=== PATIENT | female | born 1960 ===

== ENCOUNTER 2017-06-04 07:48 | Day surgery (SDC) | payer OTHER ==
[2017-05-29 11:06] VITALS: BMI 26.6
[2017-06-04] MEDS ORDERED: Lactated Ringer's 1,000 ML IV ONE (09:23)
[2017-06-04] MEDS ORDERED: Lidocaine 1% Inj (20ml) ONE (10:23)
[2017-06-04] MEDS ORDERED: Lidocaine 1% w Epi 1:100,000 Inj ONE (10:23)
--- NOTE | 2017-06-04 10:30 | CP.SDSHP ---
Same Day Surgery H & P - History Proposed Procedure: excision of Left posterior neck lipoma Pre-Op Diagnosis: Left posterior neck lipoma - Previous Medical/Surgical History Previous Surgical History: Breast augmentation, dental implants - Allergies Allergies: Allergies peach Adverse Reaction (Verified 05/29/17 10:01) SWELLING seafood Adverse Reaction (Uncoded 05/29/17 10:00) SWELLING - Physical Exam General Appearance: NAD Vital Signs: Vital Signs 06/04/17 08:42 Temperature 98.4 F Pulse Rate 87 Respiratory 18 Rate Blood Pressure 160/90 H O2 Sat by Pulse 99 Oximetry Mental Status: Alert & Oriented x3 Neuro: WNL Heart: WNL Lungs: WNL GI: WNL - {Optional Preform as Required} Breast: Other (Implants) Abdomen: WNL Integument: Other ENT: WNL - Impression Impression: Left posterior lipoma Pt. Evaluated Today:Candidate for Anesthesia & Procedure: Yes - Date & Time Date: 06/04/17 Time: 10:30 Short Stay Discharge - Short Stay Discharge Admitting Diagnosis/Reason for Visit: D17.0 Disposition: HOME/ ROUTINE Referrals: Ignacio Fink MD [Primary Care Provider] - Follow-up: follow up with Dr. Kapoor in 1-2 weeks Pain med as needed
[2017-06-04] MEDS ORDERED: Propofol 10 mg/ml Inj (20 ML) ONE (10:44)
[2017-06-04] MEDS ORDERED: Lidocaine Hydrochloride 5 ML INJ ONE (10:45)
[2017-06-04] MEDS ORDERED: Midazolam 2 MG/2 ML VIAL ONE (10:45)
[2017-06-04] MEDS ORDERED: Lidocaine/Epi 1% 1:100000 20 ML IJ ONE (11:23)
[2017-06-04] MEDS ORDERED: Bupivacaine-Epi 0.5%-1:200,000 PF Inj IJ ONE (11:23)
[2017-06-04] MEDS ORDERED: HYDROmorphone 0.5 mg/0.5 ml ISec IVP PRN (12:00)
[2017-06-04] MEDS ORDERED: Oxycodone/Acetaminophen 5/325 mg Tab PO PRN (12:20)
--- NOTE | 2017-06-04 12:20 | PCM.SURG1 ---
Surgeon's Initial Post Op Note - Surgeon's Notes Surgeon: Dr. Kapoor Radio Control Crane Operator: Alban Hillman PGY2 Type of Anesthesia: IV Sedation, Local Pre-Operative Diagnosis: Posterior neck lipoma Operative Findings: 5x5cm lipoma Post-Operative Diagnosis: Same Operation Performed: Excision of posterior neck lipoma Specimen/Specimens Removed: Lipoma 5x5cm Estimated Blood Loss: EBL {In ML}: 5 Blood Products Given: N/A Drains Used: No Drains Post-Op Condition: Good Date of Surgery/Procedure: 06/04/17 Time of Surgery/Procedure: 12:20
[2017-06-04 13:15] VITALS: RESP 18
[2017-06-04 14:24] VITALS: BP 152/93; PULSE 79; TEMP 97.9; O2SAT 97
== END 2017-06-04 14:15 | disposition home or self-care (01) ==
LOC: H.OPSURG 07:48
PROVIDERS: ATTEND Surgery
DX: D17.0 Benign lipomatous neoplasm of skin and subcutaneous tissue of head, face and neck (principal); M54.9 Dorsalgia, unspecified
CPT/HCPCS: 11406; 88304; J0690; J2250; J2704; J2765; J3010; J7030; J7120

== ENCOUNTER 2017-11-05 07:40 | Emergency (ER) | payer BC, OTHER ==
[2017-11-05 07:41] VITALS: BMI 26.6
[2017-11-05 07:48] VITALS: BP 142/93; PULSE 96; RESP 20; TEMP 97; O2SAT 97
--- NOTE | 2017-11-05 08:26 | ED PDOC ---
HPI: Eye Injury/Pain Time Seen by Provider: 11/05/17 07:57 Chief Complaint (Nursing): Eye Problem Chief Complaint (Provider): Bump on Eye History Per: Patient History/Exam Limitations: no limitations Onset/Duration Of Symptoms: Days (x 2) Current Symptoms Are (Timing): Still Present Additional Complaint(s): Waleska is a 56 y/o female who presents to the ED c/o a lump on her eye that she noticed 2 days ago. She states that she first felt the lump on Friday, and yesterday the eye was uncomfortable and felt like there was something there. Patient denies pain, sensitivity to light, or blurred vision, but admits to some itching. PMD: Ignacio Fink Past Medical History Reviewed: Historical Data, Nursing Documentation, Vital Signs Vital Signs: Last Vital Signs Temp 97.0 F L 11/05/17 08:04 Pulse 96 H 11/05/17 08:04 Resp 20 11/05/17 08:04 BP 142/93 H 11/05/17 08:04 Pulse Ox 97 11/05/17 08:04 - Medical History PMH: Arthritis, HTN Denies: Chronic Kidney Disease - Family History Family History: States: No Known Family Hx - Home Medications Home Medications: Ambulatory Orders Medication Instructions Recorded Ibuprofen [Motrin Tab] 1 tab PO ASDIR PRN 06/04/17 Organic Multivitamins 1 tab PO DAILY 06/04/17 traMADol [Ultram] 50 mg PO Q6 PRN 06/04/17 Polymyxin/Trimethoprim Sulfate 1 drop OD QID #1 bottle 11/05/17 [Polytrim Ophth Soln] - Allergies Allergies/Adverse Reactions: Allergies Allergy/AdvReac Type Severity Reaction Status Date / Time peach AdvReac SWELLING Verified 11/05/17 08:04 seafood AdvReac SWELLING Uncoded 05/29/17 10:00 Review of Systems ROS Statement: Except As Marked, All Systems Reviewed And Found Negative Eyes: Positive for: Other (lump) Physical Exam - Reviewed Nursing Documentation Reviewed: Yes Vital Signs Reviewed: Yes - Physical Exam Appears: Positive for: Well, Non-toxic, No Acute Distress Eye Exam: Positive for: Other (chalazion) ENT: Positive for: Normal ENT Inspection Neck: Positive for: Normal, Painless ROM, Supple Respiratory: Negative for: Respiratory Distress Neurologic/Psych: Positive for: Alert, Oriented - ECG O2 Sat by Pulse Oximetry: 97 (RA) Pulse Ox Interpretation: Normal Medical Decision Making Medical Decision Making: Time: 9:10 Initial Impression: Eye Chalazion Initial Plan: --Antibiotic Drops Scribe Attestation: Documented by Mike Mustafa, acting as a scribe for Kaylynn Forte MD Provider Scribe Attestation: All medical record entries made by the Scribe were at my direction and personally dictated by me. I have reviewed the chart and agree that the record accurately reflects my personal performance of the history, physical exam, medical decision making, and the department course for this patient. I have also personally directed, reviewed, and agree with the discharge instructions and disposition. Disposition - Clinical Impression Clinical Impression: Chalazion of right eye - Patient ED Disposition Is Patient to be Admitted: No Doctor Will See Patient In The: Office Counseled Patient/Family Regarding: Diagnosis, Need For Followup, Rx Given - Disposition Referrals: Ignacio Fink MD [Staff Provider] - [facility] [Outside] Disposition: Routine/Home Disposition Time: 08:10 Condition: STABLE Prescriptions: Polymyxin/Trimethoprim Sulfate [Polytrim Ophth Soln] 1 drop OD QID #1 bottle Instructions: Chalazion (ED) Forms: [facility] (Malaysian) Print Language: TAJIK - POA Present On Arrival: None
== END 2017-11-05 08:30 | disposition home or self-care (01) ==
LOC: H.ER 07:40
DX: H00.13 Chalazion right eye, unspecified eyelid (principal)